=== PATIENT | female | born 1945 | race Caucasian/White ===

== ENCOUNTER 2017-01-25 05:09 | Inpatient (IN) | payer MEDICARE, OTHER ==
[~2017-01-25] VITALS: Ht 157.5 cm; Wt 69.1 kg
[~2017-01-25 05:09] MED LIST: AMIT150T PO; AMIT75TA PO; ASPI-496 PO; ASTELIN NAS; BENZ200C40 PO; CEFU500T PO; CELE100C PO; CLOP75TA22 PO; CLOP75TA22 PO/NG; DIAZ10TA PO; DIAZ5TAB4 PO; FLUO20CA8 PO; FLUO40CA2 PO; GABA100C8 PO; GLIP5TAB10 PO; HYDR12.53 PO; LEVO500T8 PO; LISI-167 PO; LOPE2CAP PO; METH500T7 PO; METO25TA35 PO; MORP15TA39 PO; MORP60TA22 PO; OXYC-223 PO; OXYC1TAB7 PO; OXYC1TAB8 PO; POTA10TA PO; POTA10TA11 MT; POTA10TA90 PO; PRED-402 PO; RANI-276 PO; RANI150C PO; RISP1TAB3 PO; RIZA5TAB2 PO; ROSU20TA PO; ROSU40TA PO; TIZA2TAB PO; TIZA4TAB9 PO; TOPI50TA4 PO; TRAZ100T15 PO; TRAZ50TA18 PO; WARF5TAB PO; WARF5TAB7 PO; ZOLP10TA PO; coumadin
[2017-01-25] MEDS ORDERED: MORPHINE SULFATE 4 MG/ML, 1ML IVPush PRN (05:30)
[2017-01-25] MEDS ORDERED: SODIUM CHLORIDE FLUSH 10ML SYR IVF ONE (05:30)
[2017-01-25] MEDS ORDERED: ONDANSETRON 2MG/ML, 2ML IVPush ONE (05:30)
[2017-01-25] MEDS ORDERED: NITROGLYCERIN SINGLE TAB 0.4 MG SL PRN (05:30)
[2017-01-25] MEDS ORDERED: NALOXONE 0.4 MG/ML, 1ML ONE ×3 (05:50→07:17)
[2017-01-25] MEDS ORDERED: NALOXONE 0.4 MG/ML, 1ML IVPush ONE (06:00)
[2017-01-25 06:06] LABS: ASPARTATE AMINO TRANSFERASE 239 U/L (15-37); BLOOD UREA NITROGEN 32 mg/dL (7-18)
[2017-01-25 06:26] LABS: IS PT STATUS REG ER OR PRE ER? YES
[2017-01-25] MEDS ORDERED: NALOXONE 0.4 MG/ML, 1ML IVPush PRN (06:30)
[2017-01-25 06:41] LABS: ACETAMINOPHEN < 2 mcg/mL (10-30)
[2017-01-25 06:50] LABS: ANISOCYTOSIS 1+; MICROCYTOSIS 1+; OVALOCYTES 1+
[2017-01-25] MEDS ORDERED: HEPARIN 5,000 UNITS/ML, 1ML IV PRN (07:00)
[2017-01-25] MEDS ORDERED: HEPARIN 25,000 UNITS/500ML PMX 500 ML IV PRN ×2 (07:00→11:00)
[2017-01-25] MEDS ORDERED: HEPARIN 5,000 UNITS/ML, 1ML IV ONE ×2 (07:00→11:00)
[2017-01-25] MEDS ORDERED: HEPARIN 5,000 UNITS/ML, 1ML ONE (07:17)
[2017-01-25] MEDS ORDERED: HEPARIN 25,000 UNITS/500ML PMX 500 ML ONE (07:18)
[2017-01-25] MEDS ORDERED: FUROSEMIDE 20 MG/2 ML ONE ×2 (07:22)
[2017-01-25] MEDS ORDERED: FUROSEMIDE 40 MG/4 ML IV ONE (07:30)
[2017-01-25] MEDS ORDERED: SODIUM CHLORIDE FLUSH 10ML SYR IVF PRN (08:00)
[2017-01-25 08:22] LABS: DAU SCREEN DISCLAIMER
[2017-01-25 09:56] VITALS: BP 102/56
[2017-01-25] MEDS ORDERED: TEMPLATE NON-FORMULARY MED. (Fluoxetine Hcl** 40 MG) PO SCH (10:30)
[2017-01-25] MEDS ORDERED: LABETALOL 20 MG/4 ML IV PRN (10:30)
[2017-01-25] MEDS ORDERED: ONDANSETRON 2MG/ML, 2ML IVP PRN (10:30)
[2017-01-25] MEDS ORDERED: LISINOPRIL 10 MG TABLET PO SCH (10:30)
[2017-01-25] MEDS ORDERED: POLYETHYLENE GLYCOL 17 GM PACKET PO PRN (10:30)
[2017-01-25] MEDS: INSULIN REGULAR 100 UNITS/ML, 3ML VIAL SQ-INSULIN SCH ×3 (11:38→21:30)
[2017-01-25] MEDS: SODIUM CHLORIDE 0.9% 1,000 ML IV SCH ×2 (11:40→21:21)
[2017-01-25] MEDS: METOPROLOL TARTRATE 25 MG TABLET PO SCH ×2 (11:40→21:00)
[2017-01-25] MEDS: FLUOXETINE 20 MG CAPSULE PO SCH (11:40)
[2017-01-25] MEDS ORDERED: FLUOXETINE MC SCH (12:30)
[2017-01-25 16:18] LABS: TOTAL IRON BINDING CAPACITY 425 mcg/dL (250-450)
[2017-01-25 16:38] LABS: IS PT STATUS REG ER OR PRE ER? NO
[2017-01-25] MEDS: ATORVASTATIN 40 MG TABLET PO SCH (21:39)
[2017-01-25] MEDS: FAMOTIDINE 20 MG TABLET PO SCH (21:39)
[2017-01-25] MEDS: HEPARIN 5,000 UNITS/ML, 1ML IV PRN (23:18)
[2017-01-25 23:23] LABS: IS PT STATUS REG ER OR PRE ER? NO
[2017-01-26 04:00] VITALS: BP 87/54
[2017-01-26] MEDS: SODIUM CHLORIDE 0.9% 1,000 ML IV SCH (06:39)
[2017-01-26 06:47] LABS: ASPARTATE AMINO TRANSFERASE 238 U/L (15-37); BLOOD UREA NITROGEN 17 mg/dL (7-18)
[2017-01-26] MEDS ORDERED: POTASSIUM CHLORIDE 20 MEQ TAB.ER.PRT PO ONE (07:30)
[2017-01-26] MEDS: INSULIN REGULAR 100 UNITS/ML, 3ML VIAL SQ-INSULIN SCH ×4 (08:11→20:58)
[2017-01-26] MEDS: METOPROLOL SUCCINATE 25 MG TAB.ER.24H PO SCH (08:36)
[2017-01-26] MEDS: FAMOTIDINE 20 MG TABLET PO SCH ×2 (08:37→20:58)
[2017-01-26] MEDS: LISINOPRIL 5 MG TABLET PO SCH (08:37)
[2017-01-26] MEDS: FLUOXETINE 20 MG CAPSULE PO SCH (08:37)
[2017-01-26] MEDS: SENNA/DOCUSATE TABLET PO SCH (08:38)
[2017-01-26] MEDS: CLOPIDOGREL 75 MG TABLET PO/NG SCH (08:46)
[2017-01-26] MEDS: HEPARIN 5,000 UNITS/ML, 1ML IV PRN (12:45)
[2017-01-26] MEDS: ATORVASTATIN 40 MG TABLET PO SCH (20:58)
[2017-01-27] MEDS: OXYcodone IR 5MG TABLET PO PRN ×2 (01:53→09:08)
[2017-01-27] MEDS: HEPARIN 5,000 UNITS/ML, 1ML IV PRN (04:42)
[2017-01-27 04:44] VITALS: BP 90/49
[2017-01-27] MEDS: METOPROLOL SUCCINATE 25 MG TAB.ER.24H PO SCH (06:36)
[2017-01-27] MEDS: SENNA/DOCUSATE TABLET PO SCH (09:00)
[2017-01-27] MEDS: INSULIN REGULAR 100 UNITS/ML, 3ML VIAL SQ-INSULIN SCH ×2 (09:04→11:00)
[2017-01-27] MEDS: FAMOTIDINE 20 MG TABLET PO SCH (09:07)
[2017-01-27] MEDS: LISINOPRIL 5 MG TABLET PO SCH (09:07)
[2017-01-27] MEDS: CLOPIDOGREL 75 MG TABLET PO/NG SCH (09:08)
[2017-01-27] MEDS: FLUOXETINE 20 MG CAPSULE PO SCH (09:08)
== END 2017-01-27 11:55 | disposition hospice, home (50) | DRG 280 ==
LOC: EDBD 05:54 → ED 05:54 → EDBD 07:43 → EDIP 07:43 → CCU 08:43 → CSU 01-27 11:46
PROVIDERS: ADMIT Internal Medicine; ATTEND Internal Medicine
DX: I21.4 Non-ST elevation (NSTEMI) myocardial infarction (principal); I50.33 Acute on chronic diastolic (congestive) heart failure; N17.9 Acute kidney failure, unspecified; T82.856A Stenosis of peripheral vascular stent, initial encounter; T82.857A Stenosis of other cardiac prosthetic devices, implants and grafts, initial encounter; R74.0 Nonspecific elevation of levels of transaminase and lactic acid dehydrogenase [LDH]; E11.65 Type 2 diabetes mellitus with hyperglycemia; E78.5 Hyperlipidemia, unspecified; F17.210 Nicotine dependence, cigarettes, uncomplicated; I11.0 Hypertensive heart disease with heart failure; I25.10 Atherosclerotic heart disease of native coronary artery without angina pectoris; I25.2 Old myocardial infarction; I27.2 Other secondary pulmonary hypertension; G89.29 Other chronic pain; I35.0 Nonrheumatic aortic (valve) stenosis; I73.9 Peripheral vascular disease, unspecified; Z51.5 Encounter for palliative care; Z66 Do not resuscitate; Z79.4 Long term (current) use of insulin; Z82.49 Family history of ischemic heart disease and other diseases of the circulatory system; Z86.73 Personal history of transient ischemic attack (TIA), and cerebral infarction without residual deficits; Z90.49 Acquired absence of other specified parts of digestive tract; Z90.710 Acquired absence of both cervix and uterus; Z89.422 Acquired absence of other left toe(s)
CPT/HCPCS: 36415; 70450; 71010; 80047; 80053; 80061; 80307; 80329; 82140; 82728; 82962; 83540; 83550; 83735; 83880; 84484; 85025; 85520; 85610; 85730; 87081; 93005; 93306; 96365; 96375; 96376; J1644; J1815; J1940; J2310; G0480; J7030